=== PATIENT | female | born 1985 | race Caucasian/White ===

== ENCOUNTER 2024-08-23 22:06 | Emergency (ER) | payer OTHER, SELFPAY ==
[2024-08-23 22:14] VITALS: BP 130/87; PULSE 131; RESP 20; TEMP 36.7; O2SAT 98; BMI 21.9
[2024-08-23 23:35] LABS: MANUAL DIFF FLAG NO
[2024-08-23 23:37] LABS: Basophils Absolute Auto 0.1 X10*3/uL (0.0-0.2); Basophils Percent Auto 1.2 % (0-2); Eosinophils Absolute Auto 0.1 X10*3/uL (0.0-0.4); Eosinophils Percent Auto 1.6 % (0-4); Hematocrit 37.3 % (37.0-47.0); Imm Gran Abs Auto 0.01 X10*3/uL (0.00-0.03); Imm Gran Pct Auto 0.2 % (0.0-0.4); Lymphocytes Absolute Auto 1.2 X10*3/uL (1.2-4.9); Lymphocytes Percent Auto 23.8 % (20-40); Mean Corpuscular HGB Conc 34.9 g/dl (31.0-35.0); Mean Corpuscular Hemoglobin 34.6 pg (27.0-33.0); Mean Corpuscular Volume 99.2 fL (80.0-98.0); Mean Platelet Volume 8.9 fL (9.4-12.3); Monocytes Absolute Auto 0.4 X10*3/uL (0.1-1.2); Monocytes Percent Auto 7.1 % (2-11); Neutrophils Absolute Auto 3.4 x10*3/uL (2.0-8.3); Neutrophils Percent Auto 66.1 % (45-73); Red Blood Count 3.76 X10*6/uL (4.20-5.50); White Blood Count 5.1 X10*3/uL (4.8-10.8)
[2024-08-23 23:40] LABS: Platelet Count 48 X10*3/uL (160-400)
[2024-08-23 23:54] LABS: Alanine Aminotransferase 103 U/L (0-31); Albumin Level 5.1 g/dL (3.5-5.0); Alkaline Phosphatase 145 U/L (39-117); Anion Gap 24 (12-20); Aspartate Amino Transferase 288 U/L (5-31); Bilirubin Total 1.2 mg/dL (0.0-1.0); Blood Urea Nitrogen 8 mg/dL (9-16); Calcium 10.2 mg/dL (8.4-10.2); Carbon Dioxide 25 mmol/L (22-29); Chloride 100 mmol/L (96-108); Creatinine Clr Calc Pharmacy 83.2; Estimated Glomerular Filt Rate > 60; Glucose Random 85 mg/dL (60-115); Sodium 145 mmol/L (135-145); Total Protein 9.3 g/dL (6.5-8.0)
--- NOTE | 2024-08-24 01:12 | PC.NURSE ---
this rn was in another pt room, pt walked by this rn stating i am leaving [facility] i have not been seen, and walked out of ed.
== END 2024-08-24 01:14 | disposition left against medical advice (07) ==
PROVIDERS: Emergency Provider Emergency Medicine
DX: R30.0 Dysuria (principal); Z79.899 Other long term (current) drug therapy
CPT/HCPCS: 36415; 80053; 85025; 99281

== ENCOUNTER 2024-10-15 15:57 | Emergency (ER) | payer OTHER, SELFPAY ==
[2024-10-15 17:04] VITALS: BP 113/86; PULSE 90; RESP 16; TEMP 36.5; O2SAT 96; BMI 21.7
--- NOTE | 2024-10-15 17:07 | ED.GENADULT ---
HPI - General Adult General Chief complaint: Skin/Abscess/Foreign Body Stated complaint: abscess needs draining / pt might have mrsa? Time Seen by Provider: 10/15/24 18:10 Source: patient Limitations: no limitations History of Present Illness ED Provider: Cinthya Cullen PA-C HPI narrative: 38-year-old female presents with tender ?lump? over left buttock x2 days. Patient states she thinks she was exposed to MRSA, and now she feels that she has a MRSA lesion. Associated redness and swelling, no purulent drainage from the site. No fevers. Related Data Previous Rx's ?Medication ?Instructions ?Recorded doxycycline hyclate 100 mg capsule 100 mg PO BID #13 caps 10/15/24 Allergies Allergy/AdvReac Type Severity Reaction Status Date / Time cefdinir (From OMNICEF) Allergy Unknown HIVES Verified 08/23/24 22:16 sulfamethoxazole (From Allergy Unknown HIVES Verified 08/23/24 22:16 BACTRIM) trimethoprim (From BACTRIM) Allergy Unknown HIVES Verified 08/23/24 22:16 amoxicillin Allergy Hives Verified 10/15/24 17:08 casey Allergy Anaphylaxis Verified 10/15/24 17:08 Review of Systems Review of Systems: Yes all other systems are reviewed and are negative Constitutional: Constitutional: Denies fatigue and Denies fever(s) Cardiovascular: Cardiovascular: Denies chest pain and Denies dyspnea Respiratory: Respiratory: Denies dyspnea Integumentary/Breasts: Skin/Breast: Reports erythema, Denies rash, Reports skin swelling, Denies skin ulcer and Denies sores Endocrine: Endocrine: Denies fatigue PMFSH Past Medical History Attestation statement: The following information was validated with the patient. Social History Social History Unable to assess alcohol history related to: Unknown Use of substances other than those prescribed or required for medical reasons: Unknown Advance Directives: No Advance Directives Information Provided: No Physical Exam ED Exam Exam: Alert Vital Signs: Vital Signs - 24 hr 10/15/24 17:04 10/15/24 19:18 10/15/24 19:19 Temperature 97.7 F 97.9 F Pulse Rate 90 83 Respiratory Rate 16 Blood Pressure 113/86 124/107 H 121/90 H Pulse Oximetry 96 97 Oxygen Delivery Method Room Air 10/15/24 19:41 Temperature 97.9 F Pulse Rate 83 Respiratory Rate 14 Blood Pressure 121/90 H Pulse Oximetry 97 Oxygen Delivery Method Room Air BMI result Body Mass Index 21.7 Const Orientation/consciousness: patient oriented x3 Resp Effort & Inspection: normal respiratory effort Cardio Other: Normal peripheral perfusion Skin Other: Small region of erythema noted over left buttock cheek, looks as if there is an infected follicle in the center, very subtle induration, no fluctuance, Neuro General: patient oriented x3, gait normal, no focal motor deficits and CN's II-XI intact bilaterally Psych Other: Cooperative Course Course Course Narrative: RME: 38 yold female presents to the ED for left buttcok pain and is concern for MRSA abscess. Patient states hard large boil and buttock after fall. Patient also states she was exposed to somebody with MRSA so she is concerned. Patient denies any fever chills. Patient to be evaluated in the main ED Medications Administered Discontinued Medications Generic Name Dose Route Start Last Admin Trade Name Freq PRN Reason Stop Dose Admin Doxycycline Monohydrate 100 mg 10/15/24 18:31 10/15/24 18:50 Doxycycline Monohydrate 100 Mg Capsule PO 10/15/24 18:32 100 mg ONCE ONE Administration Medical Decision Making Medical Decision Making [facility] Narrative: 38-year-old female presents with tender ?lump? over left buttock x2 days. Patient states she thinks she was exposed to MRSA, and now she feels that she has a MRSA lesion. Associated redness and swelling, no purulent drainage from the site. No fevers. No chronic issues History: Per patient I have considered the following differential diagnoses: Cellulitis, purulent cellulitis, pilonidal cyst, pilonidal abscess, perirectal abscess, MRSA Plan: It looks as if the patient had a region of folliculitis, it is subtly inflamed, perhaps beginning stages a cellulitis, no abscess formation, we will treat with doxycycline. No indication for imaging or labs Discharge Plan Discharge Clinical Impression: Cellulitis Patient Disposition: Home, Self-Care Instructions: Cellulitis (ED) Additional Instructions: You are being treated for cellulitis. The area on your left buttock is not consistent with MRSA. See home care instructions. Take the doxycycline as directed. Follow up with primary care as needed. Prescriptions: New doxycycline hyclate 100 mg capsule 100 mg PO BID Qty: 13 0RF Interventions: ED Discharge Assessment Last Done: 10/15/24 19:41 Discharge Date/Time: 10/15/24 19:45 Print Language: Uzbek
[2024-10-15 19:18] VITALS: BP 124/107; PULSE 83; TEMP 36.6; O2SAT 97
[2024-10-15 19:19] VITALS: BP 121/90
[2024-10-15 19:41] VITALS: BP 121/90; PULSE 83; RESP 14; TEMP 36.6; O2SAT 97
== END 2024-10-15 19:45 | disposition home or self-care (01) ==
PROVIDERS: Emergency Provider Emergency Medicine
DX: L03.317 Cellulitis of buttock (principal)
CPT/HCPCS: 99283; 99284